=== PATIENT | male | born 1970 | race Caucasian/White ===

== ENCOUNTER → 2016-12-16 | Outpatient (CLI) | payer BC ==
--- NOTE | 2016-12-16 13:13 | DIAGNOSTIC IMAGING REPORT ---
[facility]UB CLINICAL HISTORY: DYSURIA pain COMPARISON STUDY: No previous studies for comparison. FINDINGS: Nonobstructive bowel pattern. Bowel content effectively obscures the bulk of the renal shadows. There may be a 2 mm calcification central left kidney. Right kidney is not diagnostically evaluated. Multiple pelvic vascular calcifications. IMPRESSION: 1. Limited study of the kidneys due to overlying bowel content. 2. Possible 2 mm calcification mid left kidney The above report was generated using voice recognition software. It may contain grammatical, syntax or spelling errors. Electronically signed by: Marshal Gutierrez M.D. 12/16/2016 1:11 PM Dictated Date/Time: 12/16/2016 1:09 PM
== END | disposition home or self-care (01) ==
LOC: C.RADBC 12:39
PROVIDERS: ATTEND Nurse Practitioner Family
DX: R30.0 Dysuria (principal)

== ENCOUNTER → 2016-12-16 | Outpatient (CLI) | payer BC | END | disposition home or self-care (01) | LOC: C.LABSPEC 17:04 | PROVIDERS: ATTEND Nurse Practitioner Family | DX: N20.0 Calculus of kidney (principal); R30.0 Dysuria ==

== ENCOUNTER 2024-01-20 20:56 | Inpatient (IN) ==
--- NOTE | 2024-01-20 21:33 | Emergency Department Note ---
Impression & Plan Calculus of proximal right ureter, Hydronephrosis, Acute right flank pain ED Provider Note HISTORY OF PRESENT ILLNESS: Patient is a 53-year-old male presenting with periumbilical and right flank pain. Patient reports that he ate a yogurt around 7 AM today and shortly after started to feel generally unwell in his abdominal region. Reports he had some discomfort around his periumbilical region and throughout the day the pain is progressed to be in his right lower quadrant and radiated into his right low back. He denies any history of abdominal surgeries. He reports that he thought he had food poisoning and went home and took Pepto-Bismol at around 4:15 PM, and then started having some dry heaving and loose stool. He denies any notable fevers. He denies any chest pain or shortness of breath. Reports that the pain seems to wax and wane in intensity and goes from being a cramping sensation to very sharp and intense. He denies any dysuria or hematuria. Patient currently rates his pain a 2 out of 10. ROS: as above PHYSICAL EXAM: Constitutional: Patient appears in no acute distress. HENT: Head: Normocephalic and atraumatic. Eyes: EOMI, PERRL Mouth/Throat: Mucous membranes moist. Neck: Trachea midline. Neck supple. Cardiovascular: RRR, No murmurs, rubs or gallops. Intact distal pulses. Pulmonary/Chest: No respiratory distress. Breath sounds clear and equal bilaterally. No wheezes or rales. Abdominal: Abdomen soft, no tenderness, rebound or guarding. Musculoskeletal: No edema, tenderness or deformity noted. Skin: Warm and dry. No rash, erythema, pallor or cyanosis Psychiatric: Appropriate mood and affect for situation. Neurological: Alert and keenly responsive. CN II-XII grossly intact, moving all extremities equally and fully. MDM: - Vitals signs showed hypertension. - History obtained via patient. History as above. - Chronic conditions affecting care: None - Differential diagnoses include, but are not limited to: Aortic aneurysm; appendicitis; diverticulitis; ischemic colitis; testicular torsion; ureteral calculi; UTI - Order placed for continuous cardiac monitoring. At this time, monitor showed rate of 64 bpm with normal sinus rhythm, per my interpretation. - External medical records reviewed. - Laboratory workup interpreted by myself showed leukocytosis (WBC 14.22) with neutrophilic predominance; normal lactate; stable electrolytes; elevated glucose (125); normal lipase; normal AST/ALT - Patient given 1L NS, 50 mcg IV fentanyl and 4 mg IV zofran. - CT abdomen/pelvis with IV contrast showed a stone within the proximal right ureter measuring 7 x 5 mm with moderate right-sided hydronephrosis. - UA negative for infection - Patient given an additional 1L NS and 15 mg IV toradol for pain control. - Discussed case with Donavon Urbina PA-C street commissioner for urology. He recommends admission to medicine and he will come see patient. - Discussion was had with case resolution specialist about patient's case and need for admission - Hospitalist, Dr. Villagran, consulted for admission - [facility] ASSESSMENT AND PLAN: Diagnosis: Calculus of proximal right ureter; hydronephrosis; acute right flank pain Plan: admit Past Med/Surg History Problem List (Updated 01/21/24 @ 00:23 by Gina Wade MD) Acute right flank pain (Acute) Hydronephrosis (Acute) Calculus of proximal right ureter (Acute) Medical History Nephrolithiasis Social History Smoking Status: Never smoker Preferred Language: Estonian Feels Safe at Home: Yes Allergies Allergies Allergy/AdvReac Type Severity Reaction Status Date / Time No Known Allergies Allergy Unverified 01/21/24 00:20 Home Meds Home Medications Medication Instructions Recorded Confirmed No Known Home Medications 01/21/24 01/21/24 Results & Data (ED) Vital Signs Vital Signs - 24 hr 01/20/24 20:58 01/20/24 21:23 01/20/24 21:30 Temperature 36.8 C Temperature Source Temporal Artery Scan Pulse Rate 76 73 72 Pulse Rate [Apical] Pulse Rate from SpO2 Sensor Respiratory Rate 18 16 Respiratory Effort / Characteristics Respiratory Depth Respiratory Pattern Blood Pressure 170/86 H Blood Pressure [Right Arm] Blood Pressure Mean 114 Blood Pressure Mean [Right Arm] Blood Pressure Position [Right Arm] Pulse Oximetry 96 98 Oxygen Delivery Method Room Air Room Air Sepsis Recent Fever Within 48 Hours No Sepsis New/Unexplained Change in Mental Status No Sepsis Action Taken by Nursing No Action Required 01/20/24 21:30 01/20/24 21:44 01/20/24 21:45 Temperature Temperature Source Pulse Rate 68 Pulse Rate [Apical] 70 Pulse Rate from SpO2 Sensor 69 Respiratory Rate 18 20 Respiratory Effort / Characteristics Non-Labored Spontaneous Respiratory Depth Normal Respiratory Pattern Regular Blood Pressure 180/100 H Blood Pressure [Right Arm] 180/100 H Blood Pressure Mean 133 Blood Pressure Mean [Right Arm] 126 Blood Pressure Position [Right Arm] Semi-fowlers Pulse Oximetry 98 98 Oxygen Delivery Method Room Air Sepsis Recent Fever Within 48 Hours Sepsis New/Unexplained Change in Mental Status Sepsis Action Taken by Nursing 01/20/24 21:57 01/20/24 22:15 01/20/24 22:43 Temperature Temperature Source Pulse Rate 67 67 Pulse Rate [Apical] Pulse Rate from SpO2 Sensor 69 69 Respiratory Rate 20 15 Respiratory Effort / Characteristics Respiratory Depth Respiratory Pattern Blood Pressure 164/82 H Blood Pressure [Right Arm] Blood Pressure Mean 106 Blood Pressure Mean [Right Arm] Blood Pressure Position [Right Arm] Pulse Oximetry 99 99 Oxygen Delivery Method Sepsis Recent Fever Within 48 Hours Sepsis New/Unexplained Change in Mental Status Sepsis Action Taken by Nursing 01/20/24 22:44 01/20/24 22:45 01/20/24 23:06 Temperature Temperature Source Pulse Rate 64 68 Pulse Rate [Apical] 64 Pulse Rate from SpO2 Sensor 64 68 Respiratory Rate 12 17 17 Respiratory Effort / Characteristics Non-Labored Spontaneous Respiratory Depth Normal Respiratory Pattern Regular Blood Pressure Blood Pressure [Right Arm] 164/82 H Blood Pressure Mean Blood Pressure Mean [Right Arm] 109 Blood Pressure Position [Right Arm] Semi-fowlers Pulse Oximetry 97 96 94 Oxygen Delivery Method Room Air Sepsis Recent Fever Within 48 Hours Sepsis New/Unexplained Change in Mental Status Sepsis Action Taken by Nursing 01/20/24 23:30 01/20/24 23:48 01/21/24 00:00 Temperature Temperature Source Pulse Rate 60 61 Pulse Rate [Apical] 86 Pulse Rate from SpO2 Sensor 59 L 64 Respiratory Rate 15 20 17 Respiratory Effort / Characteristics Respiratory Depth Respiratory Pattern Blood Pressure Blood Pressure [Right Arm] 181/85 H Blood Pressure Mean Blood Pressure Mean [Right Arm] 117 Blood Pressure Position [Right Arm] Pulse Oximetry 97 97 99 Oxygen Delivery Method Sepsis Recent Fever Within 48 Hours Sepsis New/Unexplained Change in Mental Status Sepsis Action Taken by Nursing 01/21/24 00:04 01/21/24 00:09 01/21/24 00:12 Temperature Temperature Source Pulse Rate 84 82 Pulse Rate [Apical] Pulse Rate from SpO2 Sensor 86 84 Respiratory Rate 13 18 Respiratory Effort / Characteristics Respiratory Depth Respiratory Pattern Blood Pressure 161/80 H Blood Pressure [Right Arm] Blood Pressure Mean 116 Blood Pressure Mean [Right Arm] Blood Pressure Position [Right Arm] Pulse Oximetry 97 97 Oxygen Delivery Method Sepsis Recent Fever Within 48 Hours Sepsis New/Unexplained Change in Mental Status Sepsis Action Taken by Nursing 01/21/24 00:21 01/21/24 00:39 01/21/24 00:54 Temperature Temperature Source Pulse Rate 76 79 74 Pulse Rate [Apical] Pulse Rate from SpO2 Sensor 77 77 Respiratory Rate 14 12 16 Respiratory Effort / Characteristics Respiratory Depth Respiratory Pattern Blood Pressure Blood Pressure [Right Arm] Blood Pressure Mean Blood Pressure Mean [Right Arm] Blood Pressure Position [Right Arm] Pulse Oximetry 96 96 Oxygen Delivery Method Sepsis Recent Fever Within 48 Hours Sepsis New/Unexplained Change in Mental Status Sepsis Action Taken by Nursing Laboratory Data 01/20/24 21:36 01/20/24 21:36 Lab Results 01/20/24 01/20/24 01/20/24 Range/Units 21:36 22:39 23:24 WBC 14.22 H (4.8-10.8) K/ul RBC 5.30 (4.70-6.10) M/uL Hgb 16.5 (14.0-18.0) g/dl Hct 47.4 (42.0-52.0) % MCV 89.4 (80.0-100.0) fL MCH 31.1 (25.0-34.0) pg MCHC 34.8 (32.0-36.0) g/dL RDW Std Deviation 41.8 (36.4-46.3) fL RDW Coeff of [place]ali 12.7 (11.5-14.5) % Plt Count 305 (130-400) K/uL MPV 9.3 L (9.4-12.4) fL Immature Gran % (Auto) 0.3 % Neut % (Auto) 86.3 % Lymph % (Auto) 7.7 % [place] % (Auto) 4.9 % Eos % (Auto) 0.6 % Baso % (Auto) 0.2 % Neut # (Auto) 12.27 H (1.40-6.50) K/uL Lymph # (Auto) 1.10 L (1.20-3.40) K/uL [place] # (Auto) 0.69 H (0.11-0.59) K/uL Eos # (Auto) 0.09 (0.00-0.50) K/uL Baso # (Auto) 0.03 (0.00-0.20) K/uL Immature Gran # (Auto) 0.04 (0.01-0.20) K/uL Sodium 135 L (136-145) mmol/L Potassium 3.9 (3.5-5.1) mmol/L Chloride 101 (98-107) mmol/L Carbon Dioxide 26 (21-32) mmol/L Anion Gap 8 (3-11) BUN 15 (6-23) mg/dl Creatinine 1.04 (0.6-1.4) mg/dl Est Cr Clr Drug Dosing 91.3 ml/min Est GFR ( Amer) 93.9 ml/min Est GFR (Non-Af Amer) 81.0 ml/min BUN/Creatinine Ratio 14.4 (10-20) Glucose 125 H (70-99(Fasting)) mg/dl Lactate 1.8 (0.4-2.0) mmol/L Calcium 10.1 (8.6-10.3) mg/dl Total Bilirubin 0.8 (0.2-1.0) mg/dl AST 21 (13-39) U/L ALT 25 (7-52) U/L Alkaline Phosphatase 67 (34-104) U/L Total Protein 8.1 (6.0-8.3) gm/dl Albumin 4.8 (3.4-5.0) gm/dl Globulin 3.3 (2.5-4.0) gm/dl Albumin/Globulin Ratio 1.5 (0.9-2) Lipase 16 (11-82) U/L Urine Color Yellow Urine Appearance Clear (Clear) Urine pH 6.5 (4.5-7.5) Ur Specific [place] > 1.045 H (1.000-1.030) Urine Protein Negative (Negative) Urine Glucose (UA) Negative (Negative) Urine Ketones Trace H (Negative) Urine Blood 2+ H (Negative) Urine Nitrite Negative (Negative) Urine Bilirubin Negative (Negative) Urine Urobilinogen Negative (Negative) Ur Leukocyte Esterase Negative (Negative) Urine WBC (Auto) 0-5 (0-5) /hpf Urine RBC (Auto) 11-20 H (0-2) /hpf U Hyaline Cast (Auto) 0-2 (0-2) /lpf U Epithel Cells (Auto) 0-2 (0-2) /hpf Urine Bacteria (Auto) None Seen (None Seen) Administered Medications Discontinued Medications Fentanyl Citrate (Fentanyl Citrate Pf 100 Mcg/2 Ml Vial) 50 mcg IV NOW STA Stop: 01/20/24 22:32 Last Admin: 01/20/24 22:45 Dose: 50 mcg Documented By: CLEMENTINA Sodium Chloride (Nss) 1,000 mls @ 999 mls/hr IV .Q1H1M ONE Stop: 01/20/24 23:31 Last Infusion: 01/20/24 23:54 Dose: Infused Documented By: Admin: 01/20/24 22:44 Dose: 999 mls/hr Documented By: CLEMENTINA Sodium Chloride (Nss) 1,000 mls @ 999 mls/hr IV .Q1H1M ONE Stop: 01/21/24 00:13 Last Infusion: 01/21/24 00:23 Dose: Infused Documented By: Admin: 01/20/24 23:20 Dose: 999 mls/hr Documented By: JESI Ioversol (Optiray 320 100ml) 92 ml IV ONCE ONE Stop: 01/20/24 22:26 Last Admin: 01/20/24 22:27 Dose: 92 ml Documented By: RAMONITA Ketorolac Tromethamine (Ketorolac Tromethamine 15 Mg/Ml Vial) 15 mg IV NOW STA Stop: 01/20/24 23:14 Last Admin: 01/20/24 23:21 Dose: 15 mg Documented By: JESI Ondansetron HCl (Ondansetron Inj 2 Mg/Ml 2 Ml Vial) 4 mg IV NOW STA Stop: 01/20/24 22:32 Last Admin: 01/20/24 22:36 Dose: 4 mg Documented By: CLEMENTINA Tamsulosin HCl (Tamsulosin Hcl 0.4 Mg Cap) 0.4 mg PO NOW STA Stop: 01/21/24 00:32 Last Admin: 01/21/24 00:40 Dose: 0.4 mg Documented By: JESI Imaging Data Radiologist's Impression: Abdomen/Pelvis CT 01/20/24 21:09 Exam(s): CT ABDOMEN + PELVIS With Contrast IV Amt: 92 cc opti 320 EXAM: CT Abdomen and Pelvis With Intravenous Contrast CLINICAL HISTORY: Reason for exam: RLQ abd pain. TECHNIQUE: Axial computed tomography images of the abdomen and pelvis with intravenous contrast. CTDI is 22.9 mGy and DLP is 1163.38 mGy-cm. Automated exposure control was utilized for the study. A dose lowering technique was utilized adhering to the principles of ALARA. CONTRAST: Patient received 92 cc opti 320 of IV contrast COMPARISON: No relevant prior studies available. FINDINGS: ABDOMEN: Liver: Unremarkable. Gallbladder and bile ducts: Unremarkable. Pancreas: Unremarkable. Spleen: Unremarkable. Adrenals: Unremarkable. Kidneys and ureters: Stone within the proximal right ureter measuring 7 x 5 mm. Moderate right-sided hydronephrosis. Stomach and bowel: Unremarkable. PELVIS: Appendix: Normal appendix. Bladder: Unremarkable. Reproductive: Unremarkable as visualized. ABDOMEN and PELVIS: Intraperitoneal space: Unremarkable. No free air. No significant fluid collection. Bones/joints: No acute fracture. Soft tissues: Unremarkable. Vasculature: Unremarkable. Lymph nodes: Unremarkable. IMPRESSION: Stone within the proximal right ureter measuring 7 x 5 mm. Moderate right-sided hydronephrosis. Electronically signed by: Derrell Boone MD 01/20/24 23:11 PM Discharge Plan Visit Data Chief Complaint: Abdominal Pain Stated Complaint: ABD PAIN/RT FLANK ED Provider: Gina Wade Discharge Problem: Calculus of proximal right ureter, Hydronephrosis, Acute right flank pain Forms Stand Alone Forms: My [employer] Prescriptions Prescriptions: No Action No Known Home Medications Referrals Referrals: Pop Haynes [Primary Care Provider] -
[2024-01-20 21:58] LABS: Basophils # (auto) 0.03 K/uL (0.00-0.20); Basophils % (auto) 0.2 %; Eosinophils # (auto) 0.09 K/uL (0.00-0.50); Eosinophils % (auto) 0.6 %; Hematocrit (blood only) 47.4 % (42.0-52.0); Hemoglobin 16.5 g/dl (14.0-18.0); Immature Granulocytes # (auto) 0.04 K/uL (0.01-0.20); Immature Granulocytes % (auto) 0.3 %; Lymphocytes % (auto) 7.7 %; Mean Corpuscular Hemoglobin 31.1 pg (25.0-34.0); Mean Corpuscular Hgb Conc 34.8 g/dL (32.0-36.0); Mean Corpuscular Volume 89.4 fL (80.0-100.0); Mean Platelet Volume 9.3 fL (9.4-12.4); Monocytes # (auto) 0.69 K/uL (0.11-0.59); Monocytes % (auto) 4.9 %; Neutrophils # (auto) 12.27 K/uL (1.40-6.50); Neutrophils % (auto) 86.3 %; Platelet Count 305 K/uL (130-400); RDW Coefficient of Variation 12.7 % (11.5-14.5); RDW Standard Deviation 41.8 fL (36.4-46.3); White Blood Count 14.22 K/ul (4.8-10.8)
[2024-01-20 22:19] LABS: Albumin Globulin Ratio 1.5 (0.9-2); Albumin Level 4.8 gm/dl (3.4-5.0); BUN Creatinine Ratio 14.4 (10-20); Bilirubin,Total 0.8 mg/dl (0.2-1.0); Calcium 10.1 mg/dl (8.6-10.3); Creatinine Clr Calc Pharmacy 91.3 ml/min; Est GFR (African American) 93.9 ml/min; Globulin 3.3 gm/dl (2.5-4.0); Potassium 3.9 mmol/L (3.5-5.1); Total Protein 8.1 gm/dl (6.0-8.3)
[2024-01-20] MEDS: OPTIRAY 320 100ml IV ONE (22:27)
[2024-01-20] MEDS: ONDANSETRON INJ 2 MG/ML 2 ML VIAL IV STA (22:36)
[2024-01-20] MEDS: SODIUM CHLORIDE 0.9% 1,000 ML IV ONE ×2 (22:44→23:20)
[2024-01-20] MEDS: fentaNYL citrate PF 100 MCG/2 ML VIAL IV STA (22:45)
--- NOTE | 2024-01-20 23:12 | CT Scan Report ---
Exam(s): CT ABDOMEN + PELVIS With Contrast IV Amt: 92 cc opti 320 EXAM: CT Abdomen and Pelvis With Intravenous Contrast CLINICAL HISTORY: Reason for exam: RLQ abd pain. TECHNIQUE: Axial computed tomography images of the abdomen and pelvis with intravenous contrast. CTDI is 22.9 mGy and DLP is 1163.38 mGy-cm. Automated exposure control was utilized for the study. A dose lowering technique was utilized adhering to the principles of ALARA. CONTRAST: Patient received 92 cc opti 320 of IV contrast COMPARISON: No relevant prior studies available. FINDINGS: ABDOMEN: Liver: Unremarkable. Gallbladder and bile ducts: Unremarkable. Pancreas: Unremarkable. Spleen: Unremarkable. Adrenals: Unremarkable. Kidneys and ureters: Stone within the proximal right ureter measuring 7 x 5 mm. Moderate right-sided hydronephrosis. Stomach and bowel: Unremarkable. PELVIS: Appendix: Normal appendix. Bladder: Unremarkable. Reproductive: Unremarkable as visualized. ABDOMEN and PELVIS: Intraperitoneal space: Unremarkable. No free air. No significant fluid collection. Bones/joints: No acute fracture. Soft tissues: Unremarkable. Vasculature: Unremarkable. Lymph nodes: Unremarkable. IMPRESSION: Stone within the proximal right ureter measuring 7 x 5 mm. Moderate right-sided hydronephrosis. Electronically signed by: Derrell Boone MD 01/20/24 23:11 PM
[2024-01-20] MEDS: KETOROLAC TROMETHAMINE 15 MG/ML VIAL IV STA (23:21)
[2024-01-20 23:39] LABS: Appearance Urine Clear (Clear); Bacteria Urine Automated None Seen (None Seen); Bilirubin Urine Negative (Negative); Blood Urine 2+ (Negative); Cast Urine Automated 0-2 /lpf (0-2); Color Urine Yellow; Epithelial Cell Urine Auto 0-2 /hpf (0-2); Glucose Urine UA Negative (Negative); Ketones Urine Trace (Negative); Leukocyte Esterase Urine Negative (Negative); Nitrite Urine Negative (Negative); Protein Urine Negative (Negative); Specific Gravity Urine > 1.045 (1.000-1.030); Urobilinogen Urine Negative (Negative); WBC Urine Automated 0-5 /hpf (0-5); pH Urine 6.5 (4.5-7.5)
--- NOTE | 2024-01-21 00:14 | Urology Consultation ---
<Statement entered by Lucien Taylor MD - 01/21/24 08:39> 7 mm stone is large enough that it would be challenging for him to pass spontaneously. Low suspicion for infection at this time. Will plan to reevaluate on 01/20 for potential ureteral stent placement. -Lucien Taylor MD. Date of Consultation January 21, 2024 Assessment & Plan (1) Calculus of proximal right ureter: I discussed with the treating emergency room physician and the patient is being admitted on the hospitalist service. From a urologic perspective we recommend the following: Provide analgesics Provide antiemetics We will initiate Flomax for expulsive therapy which has been ordered Provide IV fluid for hydration At the present time the patient is normotensive without tachycardia or fever. He does have a slight leukocytosis but does not exhibit acute kidney injury and therefore I feel a trial of conservative passage is warranted. We will make the patient n.p.o. at the present time and he will be reevaluated by our [facility] urology team on 01/21/2024 and determine if cystoscopic inter vention is required History of Present Illness Reason for Consultation: Nephrolithiasis History of Present Illness This is a 53-year-old male who presented the emergency department secondary to abdominal pain and some right flank pain. The patient notes that the pain began earlier today. He does not note any of the location of the pain other than what is described above. He does not report any modifying factors to the pain. The patient notes that he is able to urinate without difficulty and does not have any dysuria or hematuria. He has not had any nausea or vomiting but does note a poor appetite. He does note that he has had a history of kidney stones in the past and was able to successfully pass them without any issues. Since presentation emergency department he has had labs and imaging which independent reviewed. A CT scan of the abdomen pelvis shows a kidney stone in the proximal right ureter measuring 7 x 5 mm with moderate right-sided hydronephrosis. Labs included CBC her white blood cell count was elevated 14.2. Hemoglobin and hematocrit as well as platelet count were normal. Chemistry profile showed sodium was 135 with a normal potassium. BUN and creatinine were both normal. Urinalysis was not indicative of infection. At the time my interview he was resting comfortably in bed he was no distress. Allergies Allergy/AdvReac Type Severity Reaction Status Date / Time No Known Allergies Allergy Unverified 01/21/24 00:20 Home Medications Medication Instructions Recorded Confirmed Type No Known Home Medications 01/21/24 01/21/24 History Patient History Medical History Nephrolithiasis Social History Smoking Status: Never smoker Preferred Language: Serbian Feels Safe at Home: Yes Review of Systems Review of Systems: All systems reviewed & are unremarkable except as noted in HPI & below Physical Exam Constitutional: WD/WN, vitals as above Eyes: no conjunctival abnormality ENMT: Ears: no hearing impairment and no external ear abnormality Mouth: no oropharynx abnormality Neck: trachea midline Respiratory: normal respiratory effort; no respiratory distress and no labored breathing Cardiovascular: Rate/Rhythm: regular rate and regular rhythm Gastrointestinal (Abdomen): At the time of my exam the patient's abdomen is soft and nondistended. Musculoskeletal: No calf tenderness Skin: no rashes Neurologic: moves all extremities Psychiatric: A+Ox3, euthymic affect Genitourinary: No CVA tenderness with percussion bilaterally Results & Data Vital Signs (Past 12 Hours) Vital Signs Temp Pulse Pulse Resp BP BP Pulse Ox 01/21/24 00:00 86 17 181/85 H 99 01/20/24 23:48 61 20 97 01/20/24 23:30 60 15 97 01/20/24 23:06 68 17 94 01/20/24 22:45 64 17 96 01/20/24 22:44 64 12 164/82 H 97 01/20/24 22:43 164/82 H 01/20/24 22:15 67 15 99 01/20/24 21:57 67 20 99 01/20/24 21:45 180/100 H 01/20/24 21:44 70 20 180/100 H 98 01/20/24 21:30 68 18 98 01/20/24 21:30 72 01/20/24 21:23 73 16 98 01/20/24 20:58 36.8 C 76 18 170/86 H 96 O2 Del Method 01/21/24 00:00 01/20/24 23:48 01/20/24 23:30 01/20/24 23:06 01/20/24 22:45 01/20/24 22:44 Room Air 01/20/24 22:43 01/20/24 22:15 01/20/24 21:57 01/20/24 21:45 01/20/24 21:44 Room Air 01/20/24 21:30 01/20/24 21:30 01/20/24 21:23 Room Air 01/20/24 20:58 Room Air PG Care Time/CCT Total # of Minutes Spent Total Time Spent with Patient: Total time spent is greater than 50% in coordination of care (as documented) at patient's floor/unit and/or counseling patient: Coding Level of Care Code 33031 IN/OBS CONSULT LVL 5,80M Diagnoses Calculus of proximal right ureter N20.1
[2024-01-21] MEDS: TAMSULOSIN HCL 0.4 MG CAP PO STA (00:40)
--- NOTE | 2024-01-21 02:15 | History & Physical Report ---
Date of Service January 21, 2024 Assessment & Plan (1) Calculus of proximal right ureter: Plan: 53-year-old male with past medical history for kidney stones comes because of pain in the right side of his abdomen all day on and off 5/10 in severity. After CAT scan he had episode of nausea. Micturating okay. No burning micturition. No hematuria. Normal bowel movements. No chest pain or shortness of breath. No cough. No headache no dizziness. Currently resting comfortably and hemodynamically stable. Calculus of proximal right ureter Stone within the proximal right ureter measuring 7 x 5 mm Right-sided hydronephrosis Appreciate urology input IV fluids IV pain meds as needed IV antiemetics Flomax Monitor medical floor DVT prophylaxis SCDs Disposition Admit to medical floor Full code History of Present Illness Chief Complaint: Right renal colic Primary Care Provider: Pop Hanyes 53-year-old male with past medical history for kidney stones comes because of pain in the right side of his abdomen all day on and off 5/10 in severity. After CAT scan he had episode of nausea. Micturating okay. No burning micturition. No hematuria. Normal bowel movements. No chest pain or shortness of breath. No cough. No headache no dizziness. Currently resting comfortably and hemodynamically stable. Past medical history. As mentioned above Past surgical history. No surgeries. Social history. No smoking. No alcohol. No drug use. Family history. Father had [place] and stroke. Sister has epilepsy. 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 ENT- oropharynx clear Neck- supple, no JVD. Lungs- clear to auscultation no wheezing or crackles Heart- regular rate and rhythm; no murmur, no gallop. Abdomen- normal bowel sounds, soft, nontender, no distension Extremities- no pretibial edema, no erythema seen. Neuro- alert, oriented PERRL, no facial palsy; no dysarthria; moves extremities Results & Data Results & Data Vital Signs (Past 12 Hours) Vital Signs Temp Pulse Pulse Resp BP BP Pulse Ox 01/21/24 00:54 74 16 01/21/24 00:39 79 12 96 01/21/24 00:21 76 14 96 01/21/24 00:12 82 18 97 01/21/24 00:09 84 13 97 01/21/24 00:04 161/80 H 01/21/24 00:00 86 17 181/85 H 99 01/20/24 23:48 61 20 97 01/20/24 23:30 60 15 97 01/20/24 23:06 68 17 94 01/20/24 22:45 64 17 96 01/20/24 22:44 64 12 164/82 H 97 01/20/24 22:43 164/82 H 01/20/24 22:15 67 15 99 01/20/24 21:57 67 20 99 01/20/24 21:45 180/100 H 01/20/24 21:44 70 20 180/100 H 98 01/20/24 21:30 68 18 98 01/20/24 21:30 72 01/20/24 21:23 73 16 98 01/20/24 20:58 36.8 C 76 18 170/86 H 96 O2 Del Method 01/21/24 00:54 01/21/24 00:39 01/21/24 00:21 01/21/24 00:12 01/21/24 00:09 01/21/24 00:04 01/21/24 00:00 01/20/24 23:48 01/20/24 23:30 01/20/24 23:06 01/20/24 22:45 01/20/24 22:44 Room Air 01/20/24 22:43 01/20/24 22:15 01/20/24 21:57 01/20/24 21:45 01/20/24 21:44 Room Air 01/20/24 21:30 01/20/24 21:30 01/20/24 21:23 Room Air 01/20/24 20:58 Room Air Diagnostic Findings Laboratory Results WBC 14.22 K/ul (4.8-10.8) H 01/20/24 21:36 RBC 5.30 M/uL (4.70-6.10) 01/20/24 21:36 Hgb 16.5 g/dl (14.0-18.0) 01/20/24 21:36 Hct 47.4 % (42.0-52.0) 01/20/24 21:36 MCV 89.4 fL (80.0-100.0) 01/20/24 21:36 MCH 31.1 pg (25.0-34.0) 01/20/24 21:36 MCHC 34.8 g/dL (32.0-36.0) 01/20/24 21:36 RDW Std Deviation 41.8 fL (36.4-46.3) 01/20/24 21:36 RDW Coeff of Hali 12.7 % (11.5-14.5) 01/20/24 21:36 Plt Count 305 K/uL (130-400) 01/20/24 21:36 MPV 9.3 fL (9.4-12.4) L 01/20/24 21:36 Immature Gran % (Auto) 0.3 % 01/20/24 21:36 Neut % (Auto) 86.3 % 01/20/24 21:36 Lymph % (Auto) 7.7 % 01/20/24 21:36 Wright % (Auto) 4.9 % 01/20/24 21:36 Eos % (Auto) 0.6 % 01/20/24 21:36 Baso % (Auto) 0.2 % 01/20/24 21:36 Neut # (Auto) 12.27 K/uL (1.40-6.50) H 01/20/24 21:36 Lymph # (Auto) 1.10 K/uL (1.20-3.40) L 01/20/24 21:36 Wright # (Auto) 0.69 K/uL (0.11-0.59) H 01/20/24 21:36 Eos # (Auto) 0.09 K/uL (0.00-0.50) 01/20/24 21:36 Baso # (Auto) 0.03 K/uL (0.00-0.20) 01/20/24 21:36 Immature Gran # (Auto) 0.04 K/uL (0.01-0.20) 01/20/24 21:36 Sodium 135 mmol/L (136-145) L 01/20/24 21:36 Potassium 3.9 mmol/L (3.5-5.1) 01/20/24 21:36 Chloride 101 mmol/L (98-107) 01/20/24 21:36 Carbon Dioxide 26 mmol/L (21-32) 01/20/24 21:36 Anion Gap 8 (3-11) 01/20/24 21:36 BUN 15 mg/dl (6-23) 01/20/24 21:36 Creatinine 1.04 mg/dl (0.6-1.4) 01/20/24 21:36 Est Cr Clr Drug Dosing 91.3 ml/min 01/20/24 21:36 Est GFR ( Amer) 93.9 ml/min 01/20/24 21:36 Est GFR (Non-Af Amer) 81.0 ml/min 01/20/24 21:36 BUN/Creatinine Ratio 14.4 (10-20) 01/20/24 21:36 Glucose 125 mg/dl (70-99(Fasting)) H 01/20/24 21:36 Lactate 1.8 mmol/L (0.4-2.0) 01/20/24 22:39 Calcium 10.1 mg/dl (8.6-10.3) 01/20/24 21:36 Total Bilirubin 0.8 mg/dl (0.2-1.0) 01/20/24 21:36 AST 21 U/L (13-39) 01/20/24 21:36 ALT 25 U/L (7-52) 01/20/24 21:36 Alkaline Phosphatase 67 U/L (34-104) 01/20/24 21:36 Total Protein 8.1 gm/dl (6.0-8.3) 01/20/24 21:36 Albumin 4.8 gm/dl (3.4-5.0) 01/20/24 21:36 Globulin 3.3 gm/dl (2.5-4.0) 01/20/24 21:36 Albumin/Globulin Ratio 1.5 (0.9-2) 01/20/24 21:36 Lipase 16 U/L (11-82) 01/20/24 21:36 Urine Color Yellow 01/20/24 23:24 Urine Appearance Clear (Clear) 01/20/24 23:24 Urine pH 6.5 (4.5-7.5) 01/20/24 23:24 Ur Specific Energy > 1.045 (1.000-1.030) H 01/20/24 23:24 Urine Protein Negative (Negative) 01/20/24 23:24 Urine Glucose (UA) Negative (Negative) 01/20/24 23:24 Urine Ketones Trace (Negative) H 01/20/24 23:24 Urine Blood 2+ (Negative) H 01/20/24 23:24 Urine Nitrite Negative (Negative) 01/20/24 23:24 Urine Bilirubin Negative (Negative) 01/20/24 23:24 Urine Urobilinogen Negative (Negative) 01/20/24 23:24 Ur Leukocyte Esterase Negative (Negative) 01/20/24 23:24 Urine WBC (Auto) 0-5 /hpf (0-5) 01/20/24 23:24 Urine RBC (Auto) 11-20 /hpf (0-2) H 01/20/24 23:24 U Hyaline Cast (Auto) 0-2 /lpf (0-2) 01/20/24 23:24 U Epithel Cells (Auto) 0-2 /hpf (0-2) 01/20/24 23:24 Urine Bacteria (Auto) None Seen (None Seen) 01/20/24 23:24 Impressions Abdomen/Pelvis CT 01/20/24 21:09 Exam(s): CT ABDOMEN + PELVIS With Contrast IV Amt: 92 cc opti 320 EXAM: CT Abdomen and Pelvis With Intravenous Contrast CLINICAL HISTORY: Reason for exam: RLQ abd pain. TECHNIQUE: Axial computed tomography images of the abdomen and pelvis with intravenous contrast. CTDI is 22.9 mGy and DLP is 1163.38 mGy-cm. Automated exposure control was utilized for the study. A dose lowering technique was utilized adhering to the principles of ALARA. CONTRAST: Patient received 92 cc opti 320 of IV contrast COMPARISON: No relevant prior studies available. FINDINGS: ABDOMEN: Liver: Unremarkable. Gallbladder and bile ducts: Unremarkable. Pancreas: Unremarkable. Spleen: Unremarkable. Adrenals: Unremarkable. Kidneys and ureters: Stone within the proximal right ureter measuring 7 x 5 mm. Moderate right-sided hydronephrosis. Stomach and bowel: Unremarkable. PELVIS: Appendix: Normal appendix. Bladder: Unremarkable. Reproductive: Unremarkable as visualized. ABDOMEN and PELVIS: Intraperitoneal space: Unremarkable. No free air. No significant fluid collection. Bones/joints: No acute fracture. Soft tissues: Unremarkable. Vasculature: Unremarkable. Lymph nodes: Unremarkable. IMPRESSION: Stone within the proximal right ureter measuring 7 x 5 mm. Moderate right-sided hydronephrosis. Electronically signed by: Derrell Boone MD 01/20/24 23:11 PM Code Status & VTE Plan VTE Prophylaxis Plan VTE Prophylaxis will be ordered: Yes
[2024-01-21] MEDS ORDERED: ONDANSETRON INJ 2 MG/ML 2 ML VIAL IV PRN (03:31)
[2024-01-21] MEDS ORDERED: POLYETHYLENE (MIRALAX) 17 GM PACK PO PRN (03:31)
[2024-01-21] MEDS: SODIUM CHLORIDE 0.9% 1,000 ML IV SCH (03:44)
[2024-01-21 07:09] LABS: Basophils # (auto) 0.02 K/uL (0.00-0.20); Basophils % (auto) 0.2 %; Eosinophils # (auto) 0.03 K/uL (0.00-0.50); Eosinophils % (auto) 0.2 %; Hematocrit (blood only) 41.6 % (42.0-52.0); Hemoglobin 14.6 g/dl (14.0-18.0); Immature Granulocytes # (auto) 0.06 K/uL (0.01-0.20); Immature Granulocytes % (auto) 0.5 %; Lymphocytes # (auto) 1.96 K/uL (1.20-3.40); Lymphocytes % (auto) 14.8 %; Mean Corpuscular Hemoglobin 31.2 pg (25.0-34.0); Mean Corpuscular Hgb Conc 35.1 g/dL (32.0-36.0); Mean Corpuscular Volume 88.9 fL (80.0-100.0); Mean Platelet Volume 9.2 fL (9.4-12.4); Monocytes # (auto) 1.07 K/uL (0.11-0.59); Monocytes % (auto) 8.1 %; Neutrophils # (auto) 10.08 K/uL (1.40-6.50); Neutrophils % (auto) 76.2 %; Platelet Count 266 K/uL (130-400); RDW Coefficient of Variation 12.8 % (11.5-14.5); RDW Standard Deviation 41.7 fL (36.4-46.3); Red Blood Count 4.68 M/uL (4.70-6.10); White Blood Count 13.22 K/ul (4.8-10.8)
[2024-01-21 07:25] VITALS: BP 151/76; RESP 16; TEMP 98.6; O2SAT 95
[2024-01-21 07:33] LABS: BUN Creatinine Ratio 14.9 (10-20); Calcium 8.4 mg/dl (8.6-10.3); Creatinine Clr Calc Pharmacy 101.5 ml/min; Est GFR (African American) 106.1 ml/min; Est GFR (Non-African American) 91.6 ml/min; Potassium 3.9 mmol/L (3.5-5.1)
[2024-01-21] MEDS: ACETAMINOPHEN 325 MG TAB PO PRN (09:12)
[2024-01-21] MEDS: TAMSULOSIN HCL 0.4 MG CAP PO SCH (09:13)
[2024-01-21] MEDS: KETOROLAC TROMETHAMINE 15 MG/ML VIAL IV PRN (09:13)
--- NOTE | 2024-01-21 10:22 | Discharge Summary ---
Discharge Summary Date of Service January 21, 2024 Principal Dx & Hospital Course #1 = Principal Diagnosis (1) Calculus of proximal right ureter: (2) Hydronephrosis concurrent with and due to ureteral stricture: Plan Patient was cared for in the hospital. Given some fluid resuscitation. He was started on Flomax. Urology consultation was obtained. He was given some Toradol for pain control. By the following morning the patient's pain had resolved. Reevaluation by urology the patient was offered a trial of medical management/conservative management. Since his pain seems to have resolved, patient opted to proceed with medical management and follow-up with urology outpatient for more definitive intervention. There was no evidence of infection. Patient will be discharged home with the medications as mentioned below. Follow-up with urology as coordinated through their office. Course if he has recurrence of his severe pain will return to the hospital for more immediate intervention. Notes For Next Care Provider Follow-up with urology Medication Changes From Visit Flomax added for ureteral stone Ibuprofen and oxycodone for pain as needed Admission HPI Per Admitting Provider 53-year-old male with past medical history for kidney stones comes because of pain in the right side of his abdomen all day on and off 5/10 in severity. After CAT scan he had episode of nausea. Micturating okay. No burning micturition. No hematuria. Normal bowel movements. No chest pain or shortness of breath. No cough. No headache no dizziness. Currently resting comfortably and hemodynamically stable. Past medical history. As mentioned above Past surgical history. No surgeries. Social history. No smoking. No alcohol. No drug use. Family history. Father had [place] and stroke. Sister has epilepsy. Admission Exam Per Admitting Provider See H&P Discharge Exam Constitutional: Alert HEENT: Mucous membranes moist. Lungs: Clear to auscultation, decreased, no wheezes rales or rhonchi CV: S1-S2, regular Abdomen: Soft, nontender, nondistended, no flank tenderness Extremities: No significant edema Neuro: No focal deficits Psych: Cooperative, normal mood Updated Medication List Medication Instructions Recorded Confirmed Type ibuprofen 600 mg tablet 600 mg PO Q6H PRN pain #20 tabs 01/21/24 Rx oxycodone 5 mg tablet 5 mg PO Q4H PRN pain, severe #10 01/21/24 Rx tabs tamsulosin 0.4 mg capsule 0.4 mg PO QAM #30 caps 01/21/24 Rx Hospital Stay Data Consultations 01/21/24 00:18 ED Decision to Admit Stat 01/21/24 03:31 Consult Urology Routine Diagnostic Imagining Performed Reviewed imaging, laboratory and diagnostic studies. Pertinent findings as below. WBCs 13.2, improved Creatinine 0.94 Glucose 110 Urinalysis unremarkable 01/20/24 21:09 CT abd pelvis IV con only Stat Pending Results Patient Have Any Pending Studies at Discharge: No Discharge Instructions Given to Patient (Per Discharging Provider) Strain urine follow-up with urology as coordinated through their office Total Time Total Time Spent Total Time Spent (In Minutes): 25
[2024-01-21 11:39] VITALS: PULSE 70
--- NOTE | 2024-01-21 11:46 | Urology Progress Note ---
Date of Service January 21, 2024 Assessment & Plan (1) Calculus of proximal right ureter: (2) Hydronephrosis: Plan Follow-up for a 7mm obstructing proximal right ureteral stone. He remains afebrile and hemodynamically stable. Labs show mild leukocytosis of 13 and normal renal function. Urinalysis not concerning for infection. We reviewed his CT findings, specifically the 7 mm obstructing proximal right ureteral stone. Discussed stone passage rates given size and location and that it may be challenging for him to pass spontaneously. We discussed acute stone management with cystoscopy and stent placement. Ureteral stents were discussed as well as postoperative issues and pain management. He is aware a second procedure would be needed for stone treatment. Discussed outpatient options including ESWL or ureteroscopy, laser lithotripsy, with stent placement. Risks and benefits were discussed. Stone free rates were also discussed as well as possibility of multiple procedures. Ureteral stents were discussed as well as post-operative issues and pain management. All questions were answered. His pain is currently well controlled and there is low suspicion for infection. After considering options, he prefers outpatient management with potentially one procedure next week for ureteroscopy, laser lithotripsy/stone treatment, and stent placement. Risks/benefits of this discussed. No plan for acute urological intervention. Reviewed in detail signs/symptoms that would warrant return to the hospital, patient verbalized an understanding. Recommend home with Tamsulosin and pain control. Ok for discharge from perspective Our office will contact him to arrange outpatient procedure. Expected clinical course reviewed, all questions were answered. Urology will sign-off. Please call with any further questions or concerns. Admission and Anticipated Discharge Date Admission Date: January 21, 2024 Subjective Pt seen at bedside this AM Awake, resting in bed on arrival No acute distress at bedside He denies any pain or discomfort at present Denies f/c/n/v Voiding without issue Denies hematuria or dysuria Has been NPO Review of Systems Constitutional: as per Subjective / HPI Gastrointestinal: as per Subjective / HPI Genitourinary: + as per Subjective / HPI Physical Exam Constitutional: no acute distress Respiratory: no respiratory distress and no labored breathing Neurologic: moves all extremities and awake Psychiatric: A+Ox3, euthymic affect Results & Data Vital Signs (Past 12 Hours) Vital Signs Temp Pulse Pulse Pulse Resp BP BP 01/21/24 11:38 37 C 70 75 16 151/76 H 01/21/24 07:25 37 C 75 16 151/76 H 01/21/24 03:31 36.6 C 71 14 161/83 H 01/21/24 02:39 68 17 01/21/24 02:29 140/76 01/21/24 02:29 140/76 01/21/24 02:27 81 15 01/21/24 02:21 67 13 01/21/24 02:00 64 18 01/21/24 02:00 70 19 01/21/24 01:51 71 16 01/21/24 01:39 70 16 01/21/24 01:37 69 01/21/24 01:00 168/94 H 01/21/24 00:54 74 16 01/21/24 00:39 79 12 01/21/24 00:21 76 14 01/21/24 00:12 82 18 01/21/24 00:09 84 13 01/21/24 00:04 161/80 H 01/21/24 00:00 86 17 181/85 H 01/20/24 23:48 61 20 Pulse Ox O2 Del Method 01/21/24 11:38 95 01/21/24 07:25 95 Room Air 01/21/24 03:31 98 Room Air 01/21/24 02:39 96 01/21/24 02:29 01/21/24 02:29 01/21/24 02:27 01/21/24 02:21 01/21/24 02:00 01/21/24 02:00 98 Room Air 01/21/24 01:51 01/21/24 01:39 01/21/24 01:37 01/21/24 01:00 01/21/24 00:54 01/21/24 00:39 96 01/21/24 00:21 96 01/21/24 00:12 97 01/21/24 00:09 97 01/21/24 00:04 01/21/24 00:00 99 01/20/24 23:48 97 PG Care Time/CCT Total # of Minutes Spent Total Time Spent with Patient: Total time spent is greater than 50% in coordination of care (as documented) at patient's floor/unit and/or counseling patient: Coding Level of Care Code None Diagnoses Calculus of proximal right ureter N20.1 Hydronephrosis N13.30
== END 2024-01-21 12:43 | disposition home or self-care (01) | DRG 694 ==
LOC: ED 20:56 → 3N 01-21 01:09